=== PATIENT | female | born 1995 ===

== ENCOUNTER 2018-12-20 02:02 | Inpatient (IN) ==
[2018-12-20] MEDS ORDERED: AMPICILLIN INJ 2,000 MG in SODIUM CHLORIDE 0.9% 100 ML IV ONE (02:38)
[2018-12-20] MEDS ORDERED: AMPICILLIN 2,000 MG VIAL ONE (02:39)
[2018-12-20] MEDS ORDERED: OXYTOCIN/LR 20 UNIT/1,000 ML BAG IV ONE ×2 (02:39→02:49)
[2018-12-20] MEDS ORDERED: SODIUM CHLORIDE 0.9% 100 ML IV ONE (02:39)
[2018-12-20] MEDS ORDERED: BUTORPHANOL 2 MG/ML VIAL IV PRN (02:46)
[2018-12-20] MEDS ORDERED: MEPERIDINE 50 MG/1 ML VIAL IV PRN (02:46)
[2018-12-20] MEDS ORDERED: ONDANSETRON 4 MG/2 ML VIAL IV PRN (02:46)
[2018-12-20] MEDS ORDERED: LIDOCAINE 1% 50 ML VIAL ONE (02:51)
[2018-12-20] MEDS ORDERED: METHYLERGONOVINE 0.2 MG/1 ML AMP ONE (02:52)
[2018-12-20] MEDS ORDERED: TRANEXAMIC ACID 1,000 MG/10 ML VIAL ONE (02:52)
[2018-12-20] MEDS ORDERED: miSOPROStoL 200 MCG TABLET ONE (02:52)
[2018-12-20] MEDS ORDERED: CARBOPROST TROMETHAMINE 250 MCG/ML AMP IM ONE (02:53)
[2018-12-20] MEDS ORDERED: LACTATED RINGERS 1,000 ML IV SCH (03:00)
[2018-12-20 03:13] LABS: Basophils % 0.2 % (0.0-0.8); Eosinophils % 0.3 % (0.00-10.9); Hematocrit 34.8 VOL% (35.7-47.0); Hemoglobin 11.7 GM/DL (12.0-16.0); Immature Granulocytes % 0.6 %; Immature Granulocytes Absolute 0.06 #; Lymphocytes # 1.5 10*3/uL (1.4-4.0); Lymphocytes % 14.3 % (21.3-54.2); Mean Corpuscular HGB Conc 33.6 GM/DL (32-36); Mean Corpuscular Volume 84.1 FL (87-102); Mean Platelet Volume 10.8 FL (9.6-12.0); Neutrophils % 75.6 % (38.7-73.9); Platelet Count 179 T/CUMM (130-400); Red Blood Count 4.14 MC/CUMM (3.8-5.5); Red Cell Distribution Width 14.6 % (9.3-17.3); White Blood Count 10.1 T/CUMM (4-12)
[2018-12-20 03:20] LABS: Apearance,Urine CLEAR (Clear); Bilirubin,Urine Negative (Negative); Blood, Urine Negative (Negative); Glucose,Urine (UA) Negative (Negative); Ketones,Urine Negative (Negative); Nitrite,Urine Negative (Negative); Protein,Urine Negative; RBC,Urine 1 /HPF (0-4); Squamous Epithelial Cell,Urine Occasional /HPF (0-10); Urine Color Straw (Yellow); Urine Specific Gravity 1.011 (1.001-1.035); Urine Urobilinogen < 2.0 EU/DL (0.2-1.0); WBC,Urine 1 /HPF (0-6)
[2018-12-20 03:42] LABS: Alanine Aminotransferase 16 U/L (13-56); Albumin 3.1 G/DL (3.4-5.0); Alkaline Phosphatase 114 U/L (45-117); Aspartate Amino Transferase 16 U/L (0-37); Bilirubin,Total < 0.39 MG/DL (0.2-1.0); Blood Urea Nitrogen 7 MG/DL (7-18); Calcium 9.3 MG/DL (8.5-10.1); Estimated Glom Filtration Rate 128 ML/MIN; Glucose 95 MG/DL (74-106); Osmolality,Calculated 276.4 MOS/KG (273-304); Total Protein 7.8 G/DL (6.4-8.3)
[2018-12-20 04:02] LABS: Hepatitis B Surface Ag Quant 0.28 Index; Hepatitis B Surface Ag Result Negative (Negative)
[2018-12-20 04:30] LABS: HIV Antigen/Antibody Result Nonreactive (Nonreactive); Rubella Antibody IgG 38.2 IU/ML
[2018-12-20 05:08] LABS: Cord Arterial Blood HCO3 23.6 MMOL/L
[2018-12-20 05:10] LABS: Cord Venous Blood HCO3 20.4 MMOL/L; Cord Venous Blood PCO2 42.7 MMHG; Cord Venous Blood PO2 25.8
[2018-12-20] MEDS ORDERED: BENZOCAINE 20%/MENTHOL 0.5% SPRAY 56 GM CAN TOP PRN (10:07)
[2018-12-20] MEDS ORDERED: WITCH HAZEL PADS 100/JAR TOP PRN (10:07)
[2018-12-20] MEDS: IBUPROFEN 800 MG TABLET PO PRN ×2 (12:42→20:49)
[2018-12-20] MEDS: ACETAMINOPHEN 500 MG TABLET PO PRN ×2 (12:43→20:47)
[2018-12-20] MEDS: DOCUSATE SODIUM 100 MG CAPSULE PO SCH (20:47)
[2018-12-21 05:56] LABS: Basophils % 0.1 % (0.0-0.8); Eosinophils # 0.1 10*3/uL (0.0-0.87); Eosinophils % 0.3 % (0.00-10.9); Hematocrit 31.5 VOL% (35.7-47.0); Hemoglobin 10.4 GM/DL (12.0-16.0); Immature Granulocytes % 0.5 %; Immature Granulocytes Absolute 0.08 #; Lymphocytes # 1.7 10*3/uL (1.4-4.0); Lymphocytes % 11.2 % (21.3-54.2); Mean Corpuscular Volume 85.4 FL (87-102); Mean Platelet Volume 11.2 FL (9.6-12.0); Monocytes % 8.3 % (1.7-12.7); Neutrophils % 79.6 % (38.7-73.9); Platelet Count 175 T/CUMM (130-400); Red Blood Count 3.69 MC/CUMM (3.8-5.5); Red Cell Distribution Width 14.9 % (9.3-17.3); White Blood Count 14.8 T/CUMM (4-12)
[2018-12-21] MEDS: IBUPROFEN 800 MG TABLET PO PRN ×3 (06:44→21:00)
[2018-12-21] MEDS: ACETAMINOPHEN 500 MG TABLET PO PRN ×2 (06:45→21:01)
[2018-12-21] MEDS: DOCUSATE SODIUM 100 MG CAPSULE PO SCH ×2 (09:28→21:00)
[2018-12-22 07:38] VITALS: BP 105/55
[2018-12-22] MEDS: DOCUSATE SODIUM 100 MG CAPSULE PO SCH (09:35)
== END 2018-12-22 11:05 | disposition home or self-care (01) | DRG 560 ==
LOC: N.LDOUT 02:02 → N.LD 02:07 → N.OB 08:45
PROVIDERS: ADMIT Obstetrics & Gynecology; ATTEND Obstetrics & Gynecology